=== PATIENT | male | born 1955 | race Caucasian/White ===

== ENCOUNTER 2024-07-18 15:29 | Emergency (ER) | payer OTHER, MEDICARE, SELFPAY ==
--- NOTE | ~2024-07-18 | XR_ITS ---
EXAMINATION: XR KNEE, LEFT CLINICAL INFORMATION: Trauma. COMPARISON: None available. TECHNIQUE: Four views of the left knee. FINDINGS: No acute fracture or subluxation. Moderate tricompartmental degenerative osteoarthritis. Patellar spurring. Calcific densities at the insertion site of the patellar tendon in the upper patella and insertion site of the infrapatellar tendon adjacent to the tibial tubercle. No joint effusion. XR/XR knee LT 3V IMPRESSION: 1. No acute fracture or subluxation. 2. Moderate tricompartmental degenerative osteoarthritis. 3. Prominent upper patellar spurs. 4. Calcific densities at the insertion site of the patellar tendon and infrapatellar tendon suggesting tendinosis. Electronically signed by: Ana Jasso MD 07/18/2024 04:18 PM EDT
--- NOTE | ~2024-07-18 | XR_ITS ---
EXAMINATION: RADIOGRAPH LEFT ANKLE, LEFT FOOT AND LEFT CALCANEUS CLINICAL INDICATION: Trauma. COMPARISON: No similar priors. TECHNIQUE: 2 views of the left ankle. 3 views of the left foot. 1 view of the left calcaneus FINDINGS: Left ankle: Chronic appearing deformity of the medial malleolus. No subluxation. No significant soft tissue abnormality. Left foot and left calcaneus: Chronic appearing deformity along the posterior superior calcaneus. No acute fracture or subluxation. No significant soft tissue abnormality. XR/XR ankle LT min 3V IMPRESSION: Chronic appearing deformities of the medial malleolus and postero-superior calcaneus, correlate with point tenderness. Electronically signed by: Ana Jasso MD 07/18/2024 04:24 PM EDT
--- NOTE | ~2024-07-18 | XR_ITS ---
EXAMINATION: RADIOGRAPH LEFT ANKLE, LEFT FOOT AND LEFT CALCANEUS CLINICAL INDICATION: Trauma. COMPARISON: No similar priors. TECHNIQUE: 2 views of the left ankle. 3 views of the left foot. 1 view of the left calcaneus FINDINGS: Left ankle: Chronic appearing deformity of the medial malleolus. No subluxation. No significant soft tissue abnormality. Left foot and left calcaneus: Chronic appearing deformity along the posterior superior calcaneus. No acute fracture or subluxation. No significant soft tissue abnormality. XR/XR foot LT min 3V IMPRESSION: Chronic appearing deformities of the medial malleolus and postero-superior calcaneus, correlate with point tenderness. Electronically signed by: Ana Jasso MD 07/18/2024 04:24 PM EDT
--- NOTE | ~2024-07-18 | XR_ITS ---
EXAMINATION: RADIOGRAPH LEFT ANKLE, LEFT FOOT AND LEFT CALCANEUS CLINICAL INDICATION: Trauma. COMPARISON: No similar priors. TECHNIQUE: 2 views of the left ankle. 3 views of the left foot. 1 view of the left calcaneus FINDINGS: Left ankle: Chronic appearing deformity of the medial malleolus. No subluxation. No significant soft tissue abnormality. Left foot and left calcaneus: Chronic appearing deformity along the posterior superior calcaneus. No acute fracture or subluxation. No significant soft tissue abnormality. XR/XR calcaneus LT min 2V IMPRESSION: Chronic appearing deformities of the medial malleolus and postero-superior calcaneus, correlate with point tenderness. Electronically signed by: Ana Jasso MD 07/18/2024 04:24 PM EDT
[2024-07-18 15:34] VITALS: BP 160/75; PULSE 52; RESP 18; TEMP 36.7; O2SAT 96
--- NOTE | 2024-07-18 15:35 | ED_ITS ---
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 Admits Backhoe lost control and hit him, and twisted left knee. Has been ambulatory since incident. Denies head trauma or LOC. Related Data Allergies Allergy/AdvReac Type Severity Reaction Status Date / Time No Known Allergies Allergy Verified 07/18/24 15:37 Review of Systems Review of Systems: Yes all other systems are reviewed and are negative Constitutional: Constitutional: Reports as per [facility] Past Medical History Attestation statement: The following information was validated with the patient. Source: old records reviewed Social History Social History Advance Directives: No Advance Directives Information Provided: No Do you have a plan to hurt others: No Plan Physical Exam Vital Signs: Vital Signs: Last Vital Signs Temp 98.1 F 07/18/24 17:09 Pulse 53 07/18/24 17:09 Resp 18 07/18/24 17:09 BP 156/66 H 07/18/24 17:09 Pulse Ox 96 07/18/24 17:09 O2 Del Method Room Air 07/18/24 17:09 BMI result Body Mass Index 30.0 Const: General: cooperative, healthy appearing and no acute distress Orientation/consciousness: patient oriented x3 Limitations: no limitations HEENT: Head: Yes normal to inspection and Yes atraumatic Ears: hearing grossly normal bilaterally General nose exam: Normal external nose present Face and sinus: Yes normal facial exam Eyes: General: appearance normal, both eyes and all related structures EOM: EOMs intact bilaterally Neck: Neck: Yes normal visual inspection and Yes no meningeal signs Resp: Effort & Inspection: normal respiratory effort and no respiratory distress Auscultation: clear to auscultation bilaterally Cardio: Rate: regular rate Heart sounds: S1 normal heart sound present and S2 normal heart sound present GI: Inspection: Yes normal to inspection Palpation (GI): Soft to palpation, nontender, no guarding and not rigid : General: Yes no CVA tenderness Back/Spine/Pelvis: Back: no CVA tenderness Skin: Rashes: no rashes Wounds: no wounds Neuro: General: patient oriented x3, tone normal and no meningeal signs Cranial nerves: Yes CN's II-XII intact bilaterally Gait exam (Neuro): Normal gait present Extrem: Other: No appreciable deformity to left lower extremity. Mild tenderness to medial aspect of left heel. No ecchymosis/erythema. No crepitus. Neurovascularly intact. Ankle with minimal tenderness. Left knee nontender. Ambulating with steady gait. Achilles WNL General: Yes normal to inspection Course Course Course Narrative: This is a Rapid Medical Exam performed in triage by Kyleigh Berger PA-C. Full HPI, ROS and PE to be performed by primary ED provider. 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 Has been ambulatory with pain PE: +L heel ttp. No appreciable deformity. Ambulating with steady gait Plan: XR XR ankle LT min 3V/XR foot LT min 3V/XR calcaneus LT min 2V IMPRESSION: Chronic appearing deformities of the medial malleolus and postero-superior calcaneus, correlate with point tenderness. XR knee LT 3V IMPRESSION: 1. No acute fracture or subluxation. 2. Moderate tricompartmental degenerative osteoarthritis. 3. Prominent upper patellar spurs. 4. Calcific densities at the insertion site of the patellar tendon and infrapatellar tendon suggesting tendinosis. Results discussed with patient including worrisome signs and symptoms and strict return precautions, and when to return to the emergency department. They verbalized understanding and feel safe for discharge at this time. 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 On exam vital signs stable, NAD, nontoxic appearing, physical exam as noted above. Ambulating with steady gait. Concern for contusion vs sprain vs fracture Plan: X-rays Please refer to course for remaining clinical decision making, interpretation of labs/imaging results, and discussions with consultants and/or family members. Differential Diagnosis Differential Diagnoses: The differential diagnosis associated with the p resentation includes As above Admission/Observation Consideration of admission/observation: Escalation of care including admiss ion/observation considered Lab Data MDM Lab Attestation statement: I reviewed the patient's lab results. Independent Interpretation I performed an independent interpretation of an: Plain X-Ray Radiology Impression Discussion of test interpretation with radiology: I have reviewed the radiologist's reading. External Record Review External record reviewed: Inpatient record, Office record, Outpatient record, Prior outpatient labs, Prior outpatient radiology, Primary care record and Outside ED record Tests considered The following testing was considered but not selected: As above Prescription Management I considered prescription management with: Pain Medication Discharge Plan Discharge Clinical Impression: Injury of heel Patient Disposition: Home, Self-Care Instructions: Arthralgia (ED) Additional Instructions: Your x-rays are unremarkable. Ice and elevate painful areas Take Tylenol and Motrin as needed Follow-up with your doctor If symptoms persist or worsen, you are unable to ambulate return to the ED Referrals: Rickie Vargas MD [Primary Care Provider] - 1 week Stand Alone Forms: Work/School Release Interventions: ED Discharge Assessment Last Done: 07/18/24 17:09 Discharge Date/Time: 07/18/24 17:10 Print Language: [place]
[2024-07-18 17:09] VITALS: BP 156/66; PULSE 53; RESP 18; TEMP 36.7; O2SAT 96
== END 2024-07-18 17:10 | disposition home or self-care (01) ==
PROVIDERS: Emergency Provider Emergency Medicine; PCP Internal Medicine
DX: S99.922A Unspecified injury of left foot, initial encounter (principal); V88.8XXA Person injured in other specified noncollision transport accidents involving motor vehicle, nontraffic, initial encounter; M25.562 Pain in left knee; Y93.89 Activity, other specified; Y92.9 Unspecified place or not applicable; Y99.0 Civilian activity done for income or pay
CPT/HCPCS: 73562; 73610; 73630; 73650; 99282; 99283